=== PATIENT | female | born 1995 | race Caucasian/White ===

== ENCOUNTER 2018-11-14 09:04 | Day surgery (SDC) | payer OTHER ==
[2018-11-09 12:46] VITALS: BMI 27.3
[~2018-11-14 09:04] MED LIST: DEXAMETHASONE SOD PHOSPHATE 10 MG/ML 1 ML VIAL IV ONE; HEPARIN SODIUM,PORCINE 5,000 UNIT/ML 1 ML VIAL SQ ONE; HYDROmorphone 0.5 MG/0.5 ML SYRINGE IVP PRN; LACTATED RINGERS 1,000 ML IV SCH; LIDOCAINE 1% 20 ML VIAL (10MG/ML) FOR IV START INTRADERMA PRN; ONDANSETRON 4 MG/2 ML VIAL IVP ONE; SCOPOLAMINE 1.5MG/72HR PATCH TRANSDERM ONE; ceFAZolin IN SWFI 2 GM/20 ML SYRINGE IVP ONE; metroNIDAZOLE-NS PMX 500 MG in SALINE 1 100ML.BAG IVPB ONE
[2018-11-14 09:26] VITALS: RESP 16; TEMP 99
--- NOTE | 2018-11-14 10:06 | P.GSHP ---
History of Present Illness H&P Date: 11/14/18 Chief Complaint: Pilonidal cyst This is a 23-year-old female who has a chronically inflamed pilonidal cyst. Patient presents today for excision. Past Medical History Past Medical History: No Reported History History of Any Multi-Drug Resistant Organisms: None Reported Additional Past Surgical History / Comment(s): wisdom teeth extration Past Anesthesia/Blood Transfusion Reactions: Postoperative Nausea & Vomiting (PONV) Smoking Status: Current every day smoker - Past Family History Mother Family Medical History: No Reported History Medications and Allergies Home Medications Medication Instructions Recorded Confirmed Type FLUoxetine HCL [PROzac] 20 mg PO DAILY 11/09/18 11/14/18 History HYDROcodone/APAP 7.5-325MG [[place] 1 tab PO Q6HR PRN 11/09/18 11/14/18 History 7.5-325] [place] 1 tab PO QAM 11/09/18 11/14/18 History Sulfamethox-Tmp 800-160Mg [Bactrim 1 tab PO Q12HR 11/09/18 11/14/18 History DS 800-160 mg] Allergies Allergy/AdvReac Type Severity Reaction Status Date / Time No Known Allergies Allergy Verified 11/14/18 09:21 Surgical - Exam Vital Signs Temp Pulse Resp BP Pulse Ox 99.0 F 81 16 146/78 98 11/14/18 09:20 11/14/18 09:20 11/14/18 09:20 11/14/18 09:20 11/14/18 09:20 - General well developed, well nourished, no distress - Eyes PERRL - ENT normal pinna - Neck no masses - Respiratory normal expansion - Cardiovascular Rhythm: regular - Abdomen Abdomen: soft, non tender - Integumentary Chronically inflamed pilonidal cyst Assessment and Plan Assessment: Chronically inflamed pilonidal cyst. We'll perform excision. Patient aware the wound will need local wound care and daily packing.
[2018-11-14] MEDS ORDERED: PROPOFOL 10 MG/ML 20 ML VIAL IV ONE (10:19)
[2018-11-14] MEDS ORDERED: fentaNYL (PF) 50 MCG/ML 2 ML AMP ONE (10:19)
[2018-11-14] MEDS ORDERED: MIDAZOLAM 2 MG/2 ML VIAL ONE (10:19)
[2018-11-14] MEDS ORDERED: BUPIVACAIN-EPI 0.25%-1:200,000 30 ML VIAL SQ ONE ×2 (10:37)
[2018-11-14 12:21] VITALS: BP 116/79; PULSE 88
--- NOTE | 2018-12-20 13:32 | P.OP ---
Date of Procedure: 11/14/18 Preoperative Diagnosis: Chronically infected pilonidal cyst Postoperative Diagnosis: Chronically infected pilonidal cyst Procedure(s) Performed: Excision of chronically infected pilonidal cyst Anesthesia: MAC Surgeon: Bret Berg Estimated Blood Loss (ml): 10 Pathology: other (Pilonidal cyst) Condition: stable Disposition: PACU Description of Procedure: Patient's placed in the operative table in the prone position. She received IV sedation. Her area on dialysis was prepped and draped usual sterile fashion. The areas injected with 1% local Xylocaine. Elliptical skin incision was made around phimosis that is with cautery the pineal cyst excised down level of the coccyx. The wound for hemostasis. There is no bleeding seen. The wound was packed with dry Kerlix. Patient top she will was sent to recovery in stable condition.
== END 2018-11-14 12:20 | disposition home or self-care (01) ==
LOC: OR 09:04
PROVIDERS: ATTEND Surgery
DX: L05.01 Pilonidal cyst with abscess (principal); F17.210 Nicotine dependence, cigarettes, uncomplicated; Z79.899 Other long term (current) drug therapy; Z79.891 Long term (current) use of opiate analgesic
CPT/HCPCS: 81025; 88304; 11770; J2250; J1644; J1100; J2405; J3010; J2704; J0690

== ENCOUNTER 2018-11-17 10:48 | Emergency (ER) | payer OTHER ==
[2018-11-17] MEDS ORDERED: SODIUM CHLORIDE 0.9% 1,000 ML IV STA (12:05)
[2018-11-17] MEDS ORDERED: KETOROLAC 30 MG/ML 1 ML VIAL IVP STA (12:05)
[2018-11-17 12:42] LABS: Basophils % (A) 0 %; Eosinophils # (A) 0.1 k/uL (0-0.7); Eosinophils % (A) 1 %; HCT 41.7 % (34.0-46.0); HGB 14.2 gm/dL (11.4-16.0); Lymphocytes # (A) 1.5 k/uL (1.0-4.8); Lymphocytes % (A) 11 %; MCH 30.1 pg (25.0-35.0); MCHC 34.1 g/dL (31.0-37.0); MCV 88.5 fL (80.0-100.0); Mean Platelet Volume 7.1; Monocytes # (A) 0.6 k/uL (0-1.0); Monocytes % (A) 5 %; Neutrophils % (A) 82 %; Platelet Count 288 k/uL (150-450); RBC 4.72 m/uL (3.80-5.40); RDW 11.7 % (11.5-15.5); WBC 13.3 k/uL (3.8-10.6)
[2018-11-17 12:51] LABS: ALT 14 U/L (9-52); AST 15 U/L (14-36); African American GFR (CKD) >90 (>60 ml/min/1.73 sqM); Albumin 4.4 g/dL (3.5-5.0); Alkaline Phosphatase 40 U/L (38-126); Anion Gap 8 mmol/L; Blood Urea Nitrogen 11 mg/dL (7-17); Calcium 9.2 mg/dL (8.4-10.2); Carbon Dioxide 26 mmol/L (22-30); Chloride 105 mmol/L (98-107); Glucose 89 mg/dL (74-99); Potassium 4.5 mmol/L (3.5-5.1); Sodium 139 mmol/L (137-145); Total Bilirubin 0.3 mg/dL (0.2-1.3); Total Protein 6.9 g/dL (6.3-8.2)
--- NOTE | 2018-11-17 13:19 | ED ---
General Adult HPI - General Chief complaint: Wound/Laceration Stated complaint: post tailbone surgery/infection Time Seen by Provider: 11/17/18 11:38 Source: patient Mode of arrival: ambulatory Limitations: no limitations - History of Present Illness Initial comments: Patient is a 23-year-old female presenting to the emergency room with complaints of pain x one day following a pilonidal cyst removal [address] Berg. Patient states a nurse was changing her packing today and stated that she had concerns for infection and told her she should go the ER. Patient states her pain got worse last night. States she went to stand up this morning and could hardly stand up straight due to the pain. Patient denies fevers, chills, abdominal pain. No other concerns at this time. - Related Data Home Medications Medication Instructions Recorded Confirmed FLUoxetine HCL [PROzac] 20 mg PO DAILY 11/09/18 11/14/18 HYDROcodone/APAP 7.5-325MG [[place] 1 tab PO Q6HR PRN 11/09/18 11/14/18 7.5-325] [place] 1 tab PO QAM 11/09/18 11/14/18 Sulfamethox-Tmp 800-160Mg [Bactrim 1 tab PO Q12HR 11/09/18 11/14/18 DS 800-160 mg] Previous Rx's Medication Instructions Recorded Docusate [Colace] 100 mg PO BID #20 capsule 11/14/18 HYDROcodone/APAP 5-325MG [[place] 1 tab PO Q6HR PRN #10 tab 11/14/18 5-325] HYDROcodone/APAP 7.5-325MG [[place] 1 tab PO Q4H PRN 3 Days #10 tab 11/17/18 7.5-325] Ibuprofen [Motrin] 800 mg PO Q8HR PRN 5 Days #20 tab 11/17/18 Sulfamethox-Tmp 800-160Mg [Bactrim 1 each PO BID 3 Days #6 tab 11/17/18 Ds] Allergies Allergy/AdvReac Type Severity Reaction Status Date / Time No Known Allergies Allergy Verified 11/14/18 09:21 Review of Systems ROS Statement: Those systems with pertinent positive or pertinent negative responses have been documented in the HPI. ROS Other: All systems not noted in ROS Statement are negative. Past Medical History Past Medical History: No Reported History History of Any Multi-Drug Resistant Organisms: None Reported Additional Past Surgical History / Comment(s): wisdom teeth extration Past Anesthesia/Blood Transfusion Reactions: Postoperative Nausea & Vomiting (PONV) Past Psychological History: Anxiety, Depression Smoking Status: Current every day smoker Past Alcohol Use History: Occasional Past Drug Use History: None Reported - Past Family History Mother Family Medical History: No Reported History General Exam - General Exam Comments Initial Comments: GENERAL: Well-appearing, well-nourished and in no acute distress. HEAD: Atraumatic, normocephalic. EYES: Pupils equal round and reactive to light, extraocular movements intact, sclera anicteric, conjunctiva are normal. ENT: TMs normal, nares patent, oropharynx clear without exudates. Moist mucous membranes. NECK: Normal range of motion, supple without lymphadenopathy or JVD. LUNGS: Breath sounds clear to auscultation bilaterally and equal. No wheezes rales or rhonchi. HEART: Regular rate and rhythm without murmurs, rubs or gallops. ABDOMEN: Soft, nontender, normoactive bowel sounds. No guarding, no rebound. No masses appreciated. : Deferred EXTREMITIES: Normal range of motion, no pitting or edema. No clubbing or cyanosis. NEUROLOGICAL: Cranial nerves II through XII grossly intact. Normal speech, normal gait. PSYCH: Normal mood, normal affect. SKIN: There is an open wound from pilondial cyst removal with packing present. No surrounding erythema, edema, or purulent drainage. Limitations: no limitations Course Vital Signs 11/17/18 11/17/18 11/17/18 10:59 13:28 14:22 Temperature 97.2 F L 97.8 F Pulse Rate 83 64 83 Respiratory 18 16 16 Rate Blood Pressure 113/71 103/61 123/81 O2 Sat by Pulse 98 99 100 Oximetry Medical Decision Making - Medical Decision Making Patient is a 23 year old female complaining of pain status-post pilondial cyst removal [address] Berg. Patient states she was getting her packing changed today by a nurse states that she thinks she could have an infection and she should go to the ER. Patient is afebrile. On exam patient has a large open wound from the cyst removal that shows no signs of infection. There is no surrounding edema, erythema or purulent discharge. Dr. Scott spoke with Dr. Berg who states we can do a short course of antibiotics to ease the patients mind. Packing was changed. Patient will be discharged home and will follow up with Dr. Berg on Wednesday. - Lab Data Result diagrams: 11/17/18 12:22 11/17/18 12:22 Lab Results 11/17/18 11/17/18 Range/Units 12:22 12:22 WBC 13.3 H (3.8-10.6) k/uL RBC 4.72 (3.80-5.40) m/uL Hgb 14.2 (11.4-16.0) gm/dL Hct 41.7 (34.0-46.0) % MCV 88.5 (80.0-100.0) fL MCH 30.1 (25.0-35.0) pg MCHC 34.1 (31.0-37.0) g/dL RDW 11.7 (11.5-15.5) % Plt Count 288 (150-450) k/uL Neutrophils % 82 % Lymphocytes % 11 % Monocytes % 5 % Eosinophils % 1 % Basophils % 0 % Neutrophils # 11.0 H (1.3-7.7) k/uL Lymphocytes # 1.5 (1.0-4.8) k/uL Monocytes # 0.6 (0-1.0) k/uL Eosinophils # 0.1 (0-0.7) k/uL Basophils # 0.0 (0-0.2) k/uL Sodium 139 (137-145) mmol/L Potassium 4.5 (3.5-5.1) mmol/L Chloride 105 (98-107) mmol/L Carbon Dioxide 26 (22-30) mmol/L Anion Gap 8 mmol/L BUN 11 (7-17) mg/dL Creatinine 0.52 (0.52-1.04) mg/dL Est GFR (CKD-EPI)AfAm >90 (>60 ml/min/1.73 sqM) Est GFR (CKD-EPI)NonAf >90 (>60 ml/min/1.73 sqM) Glucose 89 (74-99) mg/dL Calcium 9.2 (8.4-10.2) mg/dL Total Bilirubin 0.3 (0.2-1.3) mg/dL AST 15 (14-36) U/L ALT 14 (9-52) U/L Alkaline Phosphatase 40 (38-126) U/L Total Protein 6.9 (6.3-8.2) g/dL Albumin 4.4 (3.5-5.0) g/dL Disposition Clinical Impression: Pain, History of surgical removal of pilonidal cyst Disposition: HOME SELF-CARE Condition: Stable Instructions (If sedation given, give patient instructions): Ibuprofen (By mouth) Additional Instructions: Please return to the Emergency Department if symptoms worsen or any other concerns. Follow-up with Dr. Berg as indicated. Prescriptions: Sulfamethox-Tmp 800-160Mg [Bactrim Ds] 1 each PO BID 3 Days #6 tab Ibuprofen [Motrin] 800 mg PO Q8HR PRN 5 Days #20 tab PRN Reason: Pain HYDROcodone/APAP 7.5-325MG [[place] 7.5-325] 1 tab PO Q4H PRN 3 Days #10 tab PRN Reason: Pain Is patient prescribed a controlled substance at d/c from ED?: Yes When asked, does pt state using other controlled substances?: No If prescribed controlled substance>3 days was MAPS reviewed?: Prescribed <3 Days If opioid is for acute pain is fill amount 7 days or less?: Yes If Rx opioid, was Start Talking consent form obtained?: Yes Referrals: Parul Carnes DO [Primary Care Provider] - 1-2 days
[2018-11-17 13:29] VITALS: RESP 16; TEMP 97.8
[2018-11-17 14:23] VITALS: BP 123/81; PULSE 83
== END 2018-11-17 14:25 | disposition home or self-care (01) ==
LOC: EC 10:48
DX: T81.89XA Other complications of procedures, not elsewhere classified, initial encounter (principal); M54.5 Low back pain; G89.18 Other acute postprocedural pain; F41.9 Anxiety disorder, unspecified; F32.9 Major depressive disorder, single episode, unspecified; F17.200 Nicotine dependence, unspecified, uncomplicated; Z79.3 Long term (current) use of hormonal contraceptives; Z79.899 Other long term (current) drug therapy
CPT/HCPCS: 36415; 80053; 85025; 99283; 96374; 96361; J1885

== ENCOUNTER 2024-11-29 06:19 | Emergency (ER) | payer BC, OTHER ==
[2024-11-29 06:38] VITALS: TEMP 97.5
[2024-11-29] MEDS: SODIUM CHLORIDE 0.9% 2,000 ML IV STA (07:20)
[2024-11-29] MEDS: FAMOTIDINE 20 MG/2 ML VIAL IV STA (07:22)
[2024-11-29] MEDS: diphenhydrAMINE 50 MG/ML 1 ML VIAL IVP STA (07:24)
[2024-11-29] MEDS: METOCLOPRAMIDE 5 MG/ML 2 ML VIAL IVP STA (07:26)
[2024-11-29] MEDS: KETOROLAC 15 MG/ML 1 ML VIAL IVP STA (07:31)
--- NOTE | 2024-11-29 07:41 | ED ---
Nausea/Vomiting/Diarrhea HPI - General Chief complaint: Nausea/Vomiting/Diarrhea Stated complaint: Vomiting, migraine Time Seen by Provider: 11/29/24 06:32 Source: patient, RN notes reviewed Mode of arrival: ambulatory Limitations: no limitations - History of Present Illness Initial comments: 29-year-old female presents emergency department chief complaint of migraine headache, nausea vomiting states this is a recurrent issue states that she gets migraines associated nausea vomiting and feels dehydrated. Patient states since vomiting so much she has epigastric discomfort denies any flank pain no lower abdominal pain denies no fevers chills no chest pain no shortness of breath denies any focal weakness this is her typical headache not the worst headache of her life no sudden onset. - Related Data Home Medications Medication Instructions Recorded Confirmed FLUoxetine HCL [PROzac] 20 mg PO DAILY 11/09/18 11/14/18 HYDROcodone/APAP 7.5-325MG [[place] 1 tab PO Q6HR PRN 11/09/18 11/14/18 7.5-325] [place] 1 tab PO QAM 11/09/18 11/14/18 Sulfamethox-Tmp 800-160Mg [Bactrim 1 tab PO Q12HR 11/09/18 11/14/18 DS 800-160 mg] Previous Rx's Medication Instructions Recorded Docusate [Colace] 100 mg PO BID #20 capsule 11/14/18 HYDROcodone/APAP 5-325MG [[place] 1 tab PO Q6HR PRN #10 tab 11/14/18 5-325] HYDROcodone/APAP 7.5-325MG [[place] 1 tab PO Q4H PRN 3 Days #10 tab 11/17/18 7.5-325] Ibuprofen [Motrin] 800 mg PO Q8HR PRN 5 Days #20 tab 11/17/18 Sulfamethox-Tmp 800-160Mg [Bactrim 1 each PO BID 3 Days #6 tab 11/17/18 Ds] Allergies Allergy/AdvReac Type Severity Reaction Status Date / Time No Known Allergies Allergy Verified 11/29/24 06:35 Review of Systems ROS Statement: Those systems with pertinent positive or pertinent negative responses have been documented in the HPI. ROS Other: All systems not noted in ROS Statement are negative. Past Medical History Past Medical History: No Reported History History of Any Multi-Drug Resistant Organisms: None Reported Additional Past Surgical History / Comment(s): wisdom teeth extration Past Anesthesia/Blood Transfusion Reactions: Postoperative Nausea & Vomiting (PONV) Past Psychological History: Anxiety, Depression Past Alcohol Use History: Occasional Past Drug Use History: None Reported - Past Family History Mother Family Medical History: No Reported History General Exam Limitations: no limitations General appearance: alert, in no apparent distress Head exam: Present: atraumatic, normocephalic, normal inspection Eye exam: Present: normal appearance, PERRL, EOMI. Absent: scleral icterus, conjunctival injection, periorbital swelling ENT exam: Present: normal exam, normal oropharynx, mucous membranes moist Neck exam: Present: normal inspection, full ROM. Absent: tenderness, meningismus, lymphadenopathy Respiratory exam: Present: normal lung sounds bilaterally. Absent: respiratory distress, wheezes, rales, rhonchi, stridor Cardiovascular Exam: Present: regular rate, normal rhythm, normal heart sounds. Absent: systolic murmur, diastolic murmur, rubs, gallop, clicks GI/Abdominal exam: Present: soft, tenderness, normal bowel sounds. Absent: distended, guarding, rebound, rigid Neurological exam: Present: alert, oriented X3, CN II-XII intact, reflexes norm al. Absent: motor sensory deficit Skin exam: Present: warm, dry, intact, normal color. Absent: rash Course Vital Signs 11/29/24 06:36 Temperature 97.5 F L Pulse Rate 83 Respiratory 18 Rate Blood Pressure 157/92 O2 Sat by Pulse 100 Oximetry Medical Decision Making - Medical Decision Making Was pt. sent in by a medical professional or institution (, PA, [employer], urgent care, hospital, or intermediate...) When possible be specific @ -No Did you speak to anyone other than the patient for history (EMS, parent, family, police, friend...)? What history was obtained from this source @ -No Did you review nursing and triage notes (agree or disagree)? Why? @ -I reviewed and agree with nursing and triage notes Were old charts reviewed (outside hosp., previous admission, EMS record, old EKG, old radiological studies, urgent care reports/EKG's, intermediate records)? Report findings @ -No old charts were reviewed Differential Diagnosis (chest pain, altered mental status, abdominal pain women, abdominal pain men, vaginal bleeding, weakness, fever, dyspnea, syncope, headache, dizziness, GI bleed, back pain, seizure, CVA, palpatations, mental health, musculoskeletal)? @Differential Headache: Migraine, tension, cluster, carbon monoxide, central venous thrombosis, pension karma temporal arteritis, acute closure glaucoma, intercranial hemorrhage, mas toiditis, sinusitis, head injury, this is not meant to be an all-inclusive list. Differential Abdominal Pain Women: Appendicitis, Cholecystitis, diverticulosis, ischemic bowel, pancreatitis, hepatitis, UTI, gastroenteritis, AAA, incarcerated hernia, bowel obstruction, constipation, inflammatory bowel, hepatitis, peptic ulcer disease, splenic infarction, perforated viscus, vulvitis, ovarian torsion, PID, kidney stone, placenta abruption, this is not meant to be an all-inclusive list EKG interpreted by me (3pts min.). @ -None X-rays interpreted by me (1pt min.). @ -None done CT interpreted by me (1pt min.). @ -None done U/S interpreted by me (1pt. min.). @ -None done What testing was considered but not performed or refused? (CT, X-rays, U/S, labs)? Why? @ -None What meds were considered but not given or refused? Why? @ -None Did you discuss the management of the patient with other professionals (professionals i.e. , PA, [employer], lab, RT, psych nurse, health and social care teacher, prevention coordinator, teacher, corporate security officer, correctional case records supervisor)? Give summary @ -No Was smoking cessation discussed for >3mins.? @ -No Was critical care preformed (if so, how long)? @ -No Were there social determinants of health that impacted care today? How? (Homelessness, low income, unemployed, alcoholism, drug addiction, transportati on, low edu. Level, literacy, decrease access to med. care, shelter, rehab)? @ -No Was there de-escalation of care discussed even if they declined (Discuss DNR or withdrawal of care, Hospice)? DNR status @ -No What co-morbidities impacted this encounter? (DM, HTN, Smoking, COPD, CAD, Cancer, CVA, ARF, Chemo, Hep., AIDS, mental health diagnosis, sleep apnea, morbid obesity)? @ -None Was patient admitted / discharged? Hospital course, mention meds given and route, prescriptions, significant lab abnormalities, going to OR and other pertinent info. @ -Discharge patient presented for headache, nausea vomiting has been a recurrent issue she states having is resolved after IV fluids antiemetics. Negra ent will be discharged in stable condition return parameters cussed. Undiagnosed new problem with uncertain prognosis? @ -No Drug Therapy requiring intensive monitoring for toxicity (Heparin, Nitro, I nsulin, Cardizem)? @ -No Were any procedures done? @ -No Diagnosis/symptom? @ -Migraine, nausea vomiting, dehydration Acute, or Chronic, or Acute on Chronic? @ -Acute Uncomplicated (without systemic symptoms) or Complicated (systemic symptoms)? @ -Complicated Side effects of treatment? @ -No Exacerbation, Progression, or Severe Exacerbation? @ -No Poses a threat to life or bodily function? How? (Chest pain, [place], CA, pneumonia, PE, COPD, DKA, ARF, appy, cholecystitis, CVA, Diverticulitis, Homicidal, Suicidal, threat to staff... and all critical care pts) @ -No - Lab Data Result diagrams: 11/29/24 07:35 11/29/24 07:35 Lab Results 11/29/24 11/29/24 Range/Units 07:35 07:35 WBC 14.83 H (4.50-10.00) 10*3/uL RBC 4.32 (4.10-5.20) 10*6/uL Hgb 13.7 (12.0-15.0) g/dL Hct 36.9 L (37.2-46.3) % MCV 85.4 (80.0-97.0) fL MCH 31.7 (27.0-32.0) pg MCHC 37.1 H (32.0-37.0) g/dL Plt Count 300 (140-440) 10*3/uL MPV 10.3 (9.5-12.2) fL Immature Gran % (Auto) 0.6 % Neutrophils % 83.3 % Lymphocytes % 11.9 % Monocytes % 3.8 % Eosinophils % 0.1 % Basophils % 0.3 % Immature Gran # 0.09 H (0.00-0.04) 10*3/uL Neutrophils # 12.37 H (1.80-7.70) 10*3/uL Lymphocytes # 1.76 (0.90-5.00) 10*3/uL Monocytes # 0.56 (0.20-1.00) 10*3/uL Eosinophils # 0.01 L (0.04-0.35) 10*3/uL Basophils # 0.04 (0.00-0.10) 10*3/uL Sodium 139 (137-145) mmol/L Potassium 3.9 (3.5-5.1) mmol/L Chloride 106 (98-107) mmol/L Carbon Dioxide 21 L (22-30) mmol/L Anion Gap 12 mmol/L BUN 11 (7-17) mg/dL Creatinine 0.55 (0.52-1.04) mg/dL Est GFR (CKD-EPI)AfAm >90 (>60 ml/min/1.73 sqM) Est GFR (CKD-EPI)NonAf >90 (>60 ml/min/1.73 sqM) Glucose 173 H (74-99) mg/dL Calcium 9.9 (8.4-10.2) mg/dL Total Bilirubin 0.7 (0.2-1.3) mg/dL AST 25 (14-36) U/L ALT 17 (4-34) U/L Alkaline Phosphatase 44 (38-126) U/L Total Protein 7.5 (6.3-8.2) g/dL Albumin 5.0 (3.5-5.0) g/dL Lipase 68 (23-300) U/L Disposition Clinical Impression: Dehydration, Headache, Nausea & vomiting Disposition: HOME SELF-CARE Condition: Stable Instructions (If sedation given, give patient instructions): Acute Nausea and Vomiting (ED) Additional Instructions: Please return to the Emergency Department if symptoms worsen or any other concerns. Is patient prescribed a controlled substance at d/c from ED?: No Referrals: Parul Carnes DO [Primary Care Provider] - 1-2 days Time of Disposition: 09:26
[2024-11-29 07:43] LABS: Basophils # (A) 0.04 10*3/uL (0.00-0.10); Basophils % (A) 0.3 %; Eosinophils # (A) 0.01 10*3/uL (0.04-0.35); Eosinophils % (A) 0.1 %; HCT 36.9 % (37.2-46.3); HGB 13.7 g/dL (12.0-15.0); Lymphocytes # (A) 1.76 10*3/uL (0.90-5.00); Lymphocytes % (A) 11.9 %; MCH 31.7 pg (27.0-32.0); MCHC 37.1 g/dL (32.0-37.0); MCV 85.4 fL (80.0-97.0); Mean Platelet Volume 10.3 fL (9.5-12.2); Monocytes # (A) 0.56 10*3/uL (0.20-1.00); Monocytes % (A) 3.8 %; Neutrophils # (A) 12.37 10*3/uL (1.80-7.70); Neutrophils % (A) 83.3 %; Platelet Count 300 10*3/uL (140-440); RBC 4.32 10*6/uL (4.10-5.20); RDW 11.2 % (11.5-14.5); WBC 14.83 10*3/uL (4.50-10.00)
[2024-11-29 08:14] LABS: ALT 17 U/L (4-34); African American GFR (CKD) >90 (>60 ml/min/1.73 sqM); Anion Gap 12 mmol/L; Blood Urea Nitrogen 11 mg/dL (7-17); Calcium 9.9 mg/dL (8.4-10.2); Carbon Dioxide 21 mmol/L (22-30); Glucose 173 mg/dL (74-99); Lipase 68 U/L (23-300); Non-African American GFR(CKD) >90 (>60 ml/min/1.73 sqM); Potassium 3.9 mmol/L (3.5-5.1); Sodium 139 mmol/L (137-145); Total Bilirubin 0.7 mg/dL (0.2-1.3); Total Protein 7.5 g/dL (6.3-8.2)
[2024-11-29 08:24] LABS: AST 25 U/L (14-36); Alkaline Phosphatase 44 U/L (38-126); Chloride 106 mmol/L (98-107)
[2024-11-29 10:36] VITALS: BP 117/83; PULSE 94; RESP 17
== END 2024-11-29 10:34 | disposition home or self-care (01) ==
LOC: EC 06:19
DX: G43.909 Migraine, unspecified, not intractable, without status migrainosus (principal); E86.0 Dehydration
CPT/HCPCS: 36415; 80053; 83690; 85025; 96374; 96375 ×3; 96361 ×2; 99284; J1200; J2765; J1885; J1308